=== PATIENT | male | born 1990 | race Caucasian/White ===

== ENCOUNTER 2018-10-11 19:18 | Emergency (ER) | payer BC ==
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
[2018-10-11] MEDS ORDERED: IBUPROFEN 200 MG TAB PO ONE (21:27)
[2018-10-11] MEDS ORDERED: IBUPROFEN 400 MG TAB ONE (21:27)
== END 2018-10-11 21:35 | disposition home or self-care (01) ==
LOC: ER 19:18
DX: S06.0X0A Concussion without loss of consciousness, initial encounter (principal); V43.52XA Car driver injured in collision with other type car in traffic accident, initial encounter; Y93.89 Activity, other specified; Y92.410 Unspecified street and highway as the place of occurrence of the external cause
CPT/HCPCS: 70450; 99284